=== PATIENT | male | born 1995 | race Caucasian/White ===

== ENCOUNTER 2020-01-09 02:59 | Emergency (ER) | payer SELFPAY ==
[~2020-01-09] VITALS: Ht 190.5 cm; Wt 104.0 kg
[2020-01-09 03:05] VITALS: BP 145/87
--- NOTE | 2020-01-09 04:22 | PHYS DOC ---
Past History Past Medical History: No Pertinent History Past Surgical History: No Surgical History Smoking: Greater than 1 pack/day Alcohol Use: Occasionally Drug Use: None General Adult EDM: Chief Complaint: FOOT INJURY PAIN HPI: HPI: Patient is a 24-year male coming in for pain and irritation and scaling on plantar aspect of left foot. He states he has been seen twice in various ERs, and first time was in May, second September. Was given topical antibiotics with some improvement. Has not followed up with any primary care. 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 States he came in [email or web address] because he had a "blow up with family" about him not seeking care for his feet Review of Systems: Review of Systems: Constitutional: Denies fever or chills Eyes: Denies change in visual acuity HENT: Denies nasal congestion or sore throat Respiratory: Denies cough or shortness of breath Cardiovascular: Denies chest pain or edema GI: Denies abdominal pain, nausea, vomiting, bloody stools or diarrhea : Denies dysuria Musculoskeletal: Denies back pain or joint pain Integument: Rash and scaling to left foot Neurologic: Denies headache, focal weakness or sensory changes Endocrine: Denies polyuria or polydipsia Lymphatic: Denies swollen glands Psychiatric: Denies depression or anxiety Allergies: Allergies: Allergies Coded Allergies Type Severity Reaction Last Updated Verified No Known Drug Allergies 02/18/13 No Physical Exam: PE: Constitutional: Well developed, well nourished, no acute distress, non-toxic appearance. [] HENT: Normocephalic, atraumatic, bilateral external ears normal, oropharynx moist, no oral exudates, nose normal. [] Eyes: PERRLA, EOMI, conjunctiva normal, no discharge. [] Neck: Normal range of motion, no tenderness, supple, no stridor. [] Cardiovascular:Heart rate regular rhythm, no murmur [] Lungs & Thorax: Bilateral breath sounds clear to auscultation [] Abdomen: Bowel sounds normal, soft, no tenderness, no masses, no pulsatile ma sses. [] Skin: Right foot with spotty areas of erythema around toes and lateral plantar feet, ball of foot with severe scaling with underlying erythema, no purulent drainage. No fluctuance. Back: No tenderness, no CVA tenderness. [] Extremities: No tenderness, no cyanosis, no clubbing, ROM intact, no edema. [] Neurologic: Alert and oriented X 3, normal motor function, normal sensory function, no focal deficits noted. [] Psychologic: Affect normal, judgement normal, mood normal. [] EKG: EKG: [] Radiology/Procedures: Radiology/Procedures: [] Heart Score: Risk Factors: Risk Factors: DM, Current or recent (<one month) smoker, HTN, HLP, family history of CAD, obesity. Risk Scores: Score 0 - 3: 2.5% MACE over next 6 weeks - Discharge Home Score 4 - 6: 20.3% MACE over next 6 weeks - Admit for Clinical Observation Score 7 - 10: 72.7% MACE over next 6 weeks - Early Invasive Strategies Course & Med Decision Making: Course & Med Decision Making Patient tragically looks bacterial infection possibly mild trench foot with superimposed fungal infection. [] Dragon Disclaimer: Dragon Disclaimer: This electronic medical record was generated, in whole or in part, using a voice recognition dictation system. Departure Departure: Impression: Primary Impression: Cellulitis of foot, left Additional Impression: Tinea pedis, left Disposition: 01 DC HOME SELF CARE/HOMELESS Condition: STABLE Referrals: PCP,NO (PCP) Patient Instructions: Athlete's Foot, [id number] Additional Instructions: Follow-up with [facility] for further primary care. [address] [place] [id number]. . Scripts Luliconazole (Luliconazole) 60 Gm Cream..g. 60 GM TP DAILY for tinea pedis for 14 Days, #14 EACH Prov: CORBIN ALVAREZ MD 01/09/20 Cephalexin (KEFLEX) 500 Mg Capsule 1 CAP PO TID for foot infection for 7 Days, #21 CAP 0 Refills Prov: CORBIN ALVAREZ MD 01/09/20 CORBIN ALVAREZ MD Jan 09, 2020 04:21
[2020-01-09] MEDS ORDERED: [UNRECOGNIZED DRUG - CODE] TP (04:37)
[2020-01-09] MEDS ORDERED: CEPH-264 PO (04:37)
== END 2020-01-09 04:40 | disposition home or self-care (01) ==
LOC: ER 02:59
DX: L03.116 Cellulitis of left lower limb (principal); B35.3 Tinea pedis; R21 Rash and other nonspecific skin eruption; L53.9 Erythematous condition, unspecified; F17.200 Nicotine dependence, unspecified, uncomplicated
CPT/HCPCS: 99283; 99284

== ENCOUNTER 2020-06-08 13:07 | Emergency (ER) | payer SELFPAY ==
[~2020-06-08] VITALS: Ht 190.5 cm; Wt 111.4 kg
[~2020-06-08 13:07] MED LIST: CEPH-264 PO; [UNRECOGNIZED DRUG - CODE] TP
[2020-06-08 15:19] VITALS: BP 131/68
== END 2020-06-08 15:18 | disposition home or self-care (01) ==
LOC: ER 13:07
DX: R07.9 Chest pain, unspecified (principal); R42 Dizziness and giddiness; J40 Bronchitis, not specified as acute or chronic; F15.10 Other stimulant abuse, uncomplicated; F17.210 Nicotine dependence, cigarettes, uncomplicated; I10 Essential (primary) hypertension
CPT/HCPCS: 36415; 70450; 71046; 80053; 80307; 81001; 83690; 84484; 85025; 93005; 96361; 96374; 99285; J2405; J7030

== ENCOUNTER 2021-04-10 21:34 | Emergency (ER) | payer SELFPAY ==
[~2021-04-10] VITALS: Ht 182.9 cm; Wt 123.1 kg
[2021-04-10 21:52] VITALS: BP 153/79
[2021-04-10] MEDS ORDERED: AMOX1TAB11 PO (22:28)
--- NOTE | 2021-04-10 22:28 | PHYS DOC ---
Past History Past Medical History: Hypertension Past Surgical History: Tonsillectomy Additional Past Surgical Histo: Addenoidectoy Smoking: Greater than 1 pack/day Alcohol Use: None Drug Use: None General Adult EDM: Chief Complaint: DENTAL PROBLEM HPI: HPI: 25-year-old male presents with right upper dental pain. The patient has been having intermittent problems with this part of his mouth for some time. Over the last few days he has had increased pain. Starting yesterday he noticed facial swelling and tenderness up across the right side of his scalp. He is concerned about dental infection. He knows he has bad teeth and needs to get them taken care of. He has been taking ibuprofen which was initially working but is now not covering the pain. He plans to make a dental appointment this week. Review of Systems: Review of Systems: Constitutional: Denies fever or chills Eyes: Denies change in visual acuity HENT: Dental pain Respiratory: Denies cough or shortness of breath Cardiovascular: Denies chest pain or edema GI: Denies abdominal pain, nausea, vomiting, bloody stools or diarrhea : Denies dysuria Musculoskeletal: Denies back pain or joint pain Integument: Denies rash Neurologic: Denies headache, focal weakness or sensory changes Endocrine: Denies polyuria or polydipsia Lymphatic: Denies swollen glands Psychiatric: Denies depression or anxiety Allergies: Allergies: Allergies Coded Allergies Type Severity Reaction Last Updated Verified No Known Drug Allergies 02/18/13 No Physical Exam: PE: Constitutional: Well developed, well nourished, no acute distress, non-toxic appearance. [] HENT: Normocephalic, atraumatic, bilateral external ears normal, oropharynx moist, no oral exudates, nose normal. Swelling of the gums of the right upper mouth no palpable abscess. [] Eyes: PERRLA, EOMI, conjunctiva normal, no discharge. [] Neck: Normal range of motion, no tenderness, supple, no stridor. [] Cardiovascular:Heart rate regular rhythm, no murmur [] Lungs & Thorax: Bilateral breath sounds clear to auscultation [] Abdomen: Bowel sounds normal, soft, no tenderness, no masses, no pulsatile masses. [] Skin: Warm, dry, no erythema, no rash. [] Back: No tenderness, no CVA tenderness. [] Extremities: No tenderness, no cyanosis, no clubbing, ROM intact, no edema. [] Neurologic: Alert and oriented X 3, normal motor function, normal sensory function, no focal deficits noted. [] Psychologic: Affect normal, judgement normal, mood normal. [] Current Patient Data: Vital Signs: Vital Signs Date Time Temp Pulse Resp B/P (MAP) Pulse Ox O2 Delivery O2 Flow Rate FiO2 04/10/21 21:52 98.1 67 22 153/79 (103) 99 Room Air EKG: EKG: [] Radiology/Procedures: Radiology/Procedures: [] Heart Score: C/O Chest Pain: N/A Risk Factors: Risk Factors: DM, Current or recent (<one month) smoker, HTN, HLP, family history of CAD, obesity. Risk Scores: Score 0 - 3: 2.5% MACE over next 6 weeks - Discharge Home Score 4 - 6: 20.3% MACE over next 6 weeks - Admit for Clinical Observation Score 7 - 10: 72.7% MACE over next 6 weeks - Early Invasive Strategies Course & Med Decision Making: Course & Med Decision Making Pertinent Labs and Imaging studies reviewed. (See chart for details) The patient appears to have a dental infection. There is no abscess to drain. I will place him on Augmentin for 10 days. I have strongly recommended that he follow-up as planned this week to get a plan together for his dental work. He is stable for discharge at this time. [] Ulisses Disclaimer: Ulisses Disclaimer: This electronic medical record was generated, in whole or in part, using a voice recognition dictation system. Departure Departure: Impression: Primary Impression: Pain, dental Additional Impression: Infected dental caries Disposition: HOME / SELF CARE / HOMELESS Condition: STABLE Referrals: PCP,NO (PCP) Patient Instructions: Dental Pain, [id number] Scripts Amoxicillin/Potassium Clav (AMOX TR-K CLV 875-125 MG TAB) 1 Each Tablet 1 TAB PO BID for dental infection for 10 Days, #20 TAB Prov: LEE BETTENCOURT DO 04/10/21 LEE BETTENCOURT DO Apr 10, 2021 22:28
[2021-04-10] MEDS ORDERED: AMOXICILLIN/K CLAV 875/125MG TABLET. PO ONE (23:00)
== END 2021-04-10 22:39 | disposition home or self-care (01) ==
LOC: ER 21:34
DX: K02.9 Dental caries, unspecified (principal); I10 Essential (primary) hypertension; F17.200 Nicotine dependence, unspecified, uncomplicated
CPT/HCPCS: 99283